=== PATIENT | male | born 1970 | race Caucasian/White ===

== ENCOUNTER 2017-09-02 07:10 | Emergency (ER) | payer OTHER ==
[2017-09-02] MEDS ORDERED: Cephalexin 250 MG Cap PO ONE (07:37)
--- NOTE | 2017-09-02 07:45 | EDM.PDOC ---
ED HPI GENERAL MEDICAL PROBLEM - General Chief Complaint: Skin Complaint Stated Complaint: INFECTION IN LEFT WRIST WITH RED JAXSON Time Seen by Provider: 09/02/17 07:30 Source of Information: Reports: Patient, RN History Limitations: Reports: No Limitations - History of Present Illness INITIAL COMMENTS - FREE TEXT/NARRATIVE: 47 yo male thinks he incurred a spider bite yesterday to his L dorsal thenar eminence area. This morning he woke up with a red streak extending up that arm to the level of the elbow. Thinks he had some chills in the night. No antipyretics taken this morning. Is allergic to PCN, but has tolerated cephalexin in the past. Onset Date: 09/01/17 Duration: Hour(s):, Getting Worse Location: Reports: Upper Extremity, Left Quality: Reports: Dull Severity: Mild Improves with: Reports: None Worsens with: Reports: Other (? time) Context: Reports: Other (? spider bite to L hand yesterday) Associated Symptoms: Reports: Fever/Chills (chills last night) Treatments [employer]: Reports: Other (see below) (none) Left Arm Pain Score (Numeric/FACES): 1 - Related Data Allergies Allergy/AdvReac Type Severity Reaction Status Date / Time Penicillins Allergy Cannot Verified 09/02/17 07:25 Remember Home Meds: Home Meds Cephalexin 500 mg PO Q6H #27 tablet 09/02/17 [Rx] Past Medical History - Infectious Disease History Infectious Disease History: Reports: Chicken Pox - Past Surgical History Respiratory Surgical History: Reports: Tracheostomy Social & Family History - Tobacco Use Smoking Status *Q: Never Smoker - Caffeine Use Caffeine Use: Reports: Coffee - Recreational Drug Use Recreational Drug Use: No ED ROS GENERAL - Review of Systems Review Of Systems: See Below Constitutional: Reports: Chills HEENT: Reports: No Symptoms Respiratory: Reports: No Symptoms Cardiovascular: Reports: Dyspnea on Exertion GI/Abdominal: Reports: No Symptoms : Reports: No Symptoms Musculoskeletal: Reports: No Symptoms Skin: Reports: Rash, Erythema Neurological: Reports: No Symptoms ED EXAM, SKIN/RASH Exam: See Below Exam Limited By: No Limitations General Appearance: Alert, WD/WN, No Apparent Distress Eye Exam: Bilateral Eye: Normal Inspection Ears: Normal External Exam, Normal Canal, Hearing Grossly Normal Nose: Normal Inspection, Normal Mucosa, No Blood Throat/Mouth: Normal Inspection, Normal Lips, Normal Voice, No Airway Compromise Head: Atraumatic, Normocephalic Neck: Normal Inspection, Supple, Non-Tender Respiratory/Chest: No Respiratory Distress, Lungs Clear, Normal Breath Sounds, No Accessory Muscle Use Cardiovascular: Regular Rate, Rhythm Back Exam: Normal Inspection. No: CVA Tenderness (R), CVA Tenderness (L) Extremities: Normal Inspection, Normal Range of Motion, Non-Tender, No Pedal Edema Neurological: Alert, Oriented, CN II-XII Intact, Normal Cognition, No Motor/ Sensory Deficits Psychiatric: Normal Affect, Normal Mood Skin: Warm, Dry, Intact, Normal Color, No Rash Location, Skin: Upper Extremity, Left Characteristics: Linear, Erythematous Lymphatic: No Adenopathy Course - Vital Signs Text/Narrative:: cephalexin 750 mg po Last Recorded V/S: Last Vital Signs Temp 36.4 C 09/02/17 07:26 Pulse 76 09/02/17 07:26 Resp 16 09/02/17 07:26 BP 127/80 09/02/17 07:26 Pulse Ox 96 09/02/17 07:26 - Orders/Labs/Meds Meds: Medications Discontinued Medications Generic Name Dose Route Start Last Admin Trade Name Freq PRN Reason Stop Dose Admin Cephalexin 750 mg 09/02/17 07:37 Keflex PO 09/02/17 07:38 ONETIME ONE Departure - Departure Time of Disposition: 07:48 Disposition: Home, Self-Care 01 Condition: Good Clinical Impression: Acute lymphangitis - Discharge Information Prescriptions: Cephalexin 500 mg PO Q6H #27 tablet Referrals: PCP,None [Primary Care Provider] - Forms: ED Department Discharge Additional Instructions: Take cephalexin as directed. Recheck if allergy occurs from med or if your infection worsens or does not resolve completely.
== END 2017-09-02 07:52 | disposition home or self-care (01) ==
LOC: JP.ED 07:10
DX: L03.91 Acute lymphangitis, unspecified (principal); Z88.0 Allergy status to penicillin
CPT/HCPCS: 99283; A9270

== ENCOUNTER 2025-04-04 16:10 | Emergency (ER) | payer OTHER | END 2025-04-04 19:20 | disposition home or self-care (01) | LOC: JP.ED 16:10 | DX: S93.491A Sprain of other ligament of right ankle, initial encounter (principal); Z88.0 Allergy status to penicillin; X50.1XXA Overexertion from prolonged static or awkward postures, initial encounter | CPT/HCPCS: 73610-26-RT; 73610-RT; 99283 ==